=== PATIENT | male | born 1940 ===

== ENCOUNTER 2017-11-20 10:23 | Outpatient (CLI) | payer MEDICARE ==
--- NOTE | 2017-11-20 11:58 | ULT ---
RIGHT UPPER QUADRANT ULTRASOUND: History: Right upper quadrant pain. Technique: Multiplanar grayscale and color doppler images were obtained in a right upper quadrant abd ominal ultrasound. FINDINGS: The liver is normal in echogenicity without focal lesions or intrahepatic ductal dilatation. The gall bladder is normal without stones, sludge, or gallbladder wall thickening or pericholecystic fluid. Th e common bile duct is normal measuring 5 mm. The visualized portions of the pancreas are unremarkable. The right kidney is normal in echogenicity without hydronephrosis or calculus and measures 10.9 cm in length. An anechoic cyst measuring 0.9 cm is seen in the right kidney. IMPRESSION: Right renal cyst. POS: [facility]
== END 2017-11-20 10:24 | disposition home or self-care (01) ==
LOC: BICULT 10:23
PROVIDERS: ATTEND Internal Medicine Gastroenterology
DX: R10.13 Epigastric pain (principal); N28.1 Cyst of kidney, acquired
CPT/HCPCS: 76705

== ENCOUNTER 2018-02-06 12:32 | Outpatient (CLI) | payer MEDICARE ==
--- NOTE | 2018-02-06 13:30 | RAD ---
ONE VIEW ABDOMEN: HISTORY: Right-sided low back pain. COMPARISON: None. FINDINGS: Nonspecific bowel gas pattern. No suspicious densities in the abdomen or pelvis. Left hemipelvis an d right hemipelvis phleboliths are suspected. There is a moderate amount of fecal material in the ri ght hemicolon. No evidence of pneumoperitoneum on the supine projection. IMPRESSION: Nonspecific bowel gas pattern. POS: [facility]
== END 2018-02-06 12:33 | disposition home or self-care (01) ==
LOC: SCSRAD 12:32
PROVIDERS: ATTEND Family Medicine
DX: R35.0 Frequency of micturition (principal)
CPT/HCPCS: 74018